=== PATIENT | female | born 1985 | race Hispanic/Latino ===

== ENCOUNTER 2019-10-28 23:14 | Emergency (ER) | payer SELFPAY ==
[~2019-10-28] VITALS: Ht 152.4 cm; Wt 85.7 kg
[2019-10-28] MEDS ORDERED: PRENATABS RX T1 EACH PO (23:39)
== END 2019-10-28 23:56 | disposition home or self-care (01) ==
LOC: ED 23:14
DX: O20.0 Threatened abortion (principal); Z3A.09 9 weeks gestation of pregnancy
CPT/HCPCS: 99283